=== PATIENT | female | born 1950 | race Caucasian/White ===

== ENCOUNTER 2016-09-28 15:46 | Emergency (ER) | payer BC, MEDICARE ==
[2016-09-28 18:31] VITALS: BP 156/80
[2016-09-28] MEDS ORDERED: Acetaminophen TAB* 325 MG PO ONE (18:56)
[2016-09-28] MEDS ORDERED: metroNIDAZOLE IV 500 MG/100ML* 500 MG/100 ML BAG IVPB ONE (19:13)
[2016-09-28] MEDS ORDERED: Ciprofloxacin 400MG IVPREMIX(* 400 MG/200 ML BAG IVPB ONE (19:13)
[2016-09-28 19:25] LABS: Hematocrit 40 % (35-47); Hemoglobin 13.1 g/dl (12.0-16.0); Mean Corpuscular HGB Conc 33 g/dl (31-36); Mean Corpuscular Hemoglobin 28 pg (27-31); Mean Corpuscular Volume 83 fL (80-97); Mean Platelet Volume 9 um3 (7.4-10.4); Red Blood Count 4.75 10^6/ul (4.0-5.4); Red Cell Distribution Width 15 % (10.5-15)
[2016-09-28] MEDS: NS 0.9% 1000 ML* 2,000 ML IV ONE (19:36)
[2016-09-28 19:40] LABS: ALT 17 U/L (7-52); Alkaline Phosphatase 83 U/L (34-104); BUN/Creatinine Ratio 17.1 (8-20); Blood Urea Nitrogen 13 mg/dL (6-24); C Reactive Protein 124.45 mg/L (< 5.00); CO2 Carbon Dioxide 23 mmol/L (22-32); Calcium 9.1 mg/dL (8.6-10.3); Chloride 101 mmol/L (101-111); Creatine Kinase 89 U/L (10-223); EGFR African American 98.2 (>60); EGFR Non-African American 76.4 (>60); Globulin 3.3 g/dL (2-4); Glucose 116 mg/dL (70-100); Sodium 136 mmol/L (133-145); Total Protein 7.3 g/dL (6.4-8.9)
[2016-09-28 19:41] LABS: Troponin I 0.01 ng/mL (<0.04)
[2016-09-28] MEDS ORDERED: NS 0.9% 1000 ML* 1,000 ML IV ONE (19:50)
--- NOTE | 2016-09-28 19:53 | RAD ---
HISTORY: Febrile illness COMPARISONS: October 31, 2004 VIEWS: 2: Frontal dual-energy and lateral views of the chest. FINDINGS: CARDIOMEDIASTINAL SILHOUETTE: The cardiomediastinal silhouette is normal. VICKIE: The vickie are normal. PLEURA: The costophrenic angles are sharp. No pleural abnormalities are noted. LUNG PARENCHYMA: The lungs are clear. ABDOMEN: The upper abdomen is clear. There is no subphrenic gas. BONES AND SOFT TISSUES: Degenerative changes are noted along the spine. OTHER: None. IMPRESSION: NO ACTIVE CARDIOPULMONARY DISEASE.
[2016-09-28] MEDS ORDERED: Vancomycin(*) 1,000 MG VIAL IVPB SCH (20:00)
[2016-09-28 20:23] LABS: Anion Gap 12 mmol/L (2-11)
[2016-09-28] MEDS ORDERED: Vancomycin 1500 MG IV - x ONCE IVPB ONE ×2 (22:00)
[2016-09-28 22:20] LABS: Erythrocyte Sed Rate 50 mm/Hr (0-40)
--- NOTE | 2016-09-28 22:38 | ED ---
HPI Febrile Illness - HPI Summary HPI Summary: Patient is a diabetic who presents to ED with CC of sore throat, generalized weakness and body aches, sweats, chills and fever x 2 days. Denies sick contacts or travel. 1x episode of vomiting bile like substance early this morning. Denies C/D, abdominal pain or neck pain. Endorses BILLINGS and fatigue, but denies visual disturbances, ear pain or eye pain. She is allergic to multiple medications and is concerned she cannot have abx for source of illness. On arrival, she is febrile at 100.5, after 2 hours she is 102.3. Son is with her. She states she is not confused or has AMS. She has not taken anything for relief. Last food intake yesterday. She feels dehydrated. - History of Current Complaint Chief Complaint: EDThroatPain Time Seen by Provider: 09/28/16 18:50 Hx Obtained From: Patient Onset/Duration: Started Hours Ago Timing: Constant Temperature: 102.3 F Initial Severity: Mild Current Severity: Moderate Pain Intensity: 8 Pain Scale Used: 0-10 Numeric Aggravating Factors: Nothing Alleviating Factors: Nothing Associated Signs and Symptoms: Chills, Diaphoresis, Dizziness, Headache, Nausea , Night Sweats, Sore Throat, Vomiting, Weakness - Risk Factors Pseudomonas Risk Factors: Negative Serious Bacterial Infection Risk Factors: Negative - Allergy/Home Medications Allergies/Adverse Reactions: Allergies Allergy/AdvReac Type Severity Reaction Status Date / Time Aztreonam Allergy Unknown Verified 06/19/13 11:35 Reaction Details Carbapenems Allergy Unknown Verified 06/19/13 11:35 Reaction Details Cephalosporins Allergy Rash Verified 06/19/13 11:35 Latex Allergy Rash Verified 06/19/13 11:35 Penicillins [PCN] Allergy Rash Verified 06/19/13 11:35 antibiotics Allergy Rash Uncoded 06/19/13 11:35 ENVIRONMENTAL Allergy VARIED Uncoded 06/19/13 11:35 PMH/Surg Hx/FS Hx/Imm Hx Previously Healthy: Yes Cardiovascular History: Reports: Hx Hypertension - ON MEDS Denies: Other Cardiovascular Problems/Disorders Respiratory History: Reports: Hx Asthma - WILL BRING INHALER GI History: Reports: Hx Irritable Bowel Denies: Other GI Disorders Musculoskeletal History: Reports: Hx Arthritis - THUMB, BOTH KNEES Denies: Other Musculoskeletal History Sensory History: Reports: Hx Contacts or Glasses - GLASSES Opthamlomology History: Reports: Hx Contacts or Glasses - GLASSES Neurological History: Denies: Other Neuro Impairments/Disorders Psychiatric History: Reports: Hx Anxiety - ON MEDS - Surgical History Surgery Procedure, Year, and Place: RIGHT KNEE, 2004, [facility] [place]. GALLBLADDER, 1994, [facility] [place]. TONSILECTOMY A CHILD, [facility] [place] Hx Anesthesia Reactions: No - Immunization History Hx Pertussis Vaccination: No Immunizations Up to Date: Unable to Obtain/Confirm Infectious Disease History: No Infectious Disease History: Denies: Traveled Outside the [place] in Last 30 Days - Family History Known Family History: Positive: Unknown - Social History Occupation: Employed Full-time Lives: With Family Alcohol Use: None Hx Substance Use: No Substance Use Type: Reports: None Hx Tobacco Use: No Do You Chew or Dip Tobacco: No Have You Chewed or Dipped Tobacco in the LAST YEAR: No Have You Smoked in the Last Year: No Review of Systems Positive: Fever, Chills, Fatigue, Skin Diaphoresis Eyes: Negative Positive: Sore Throat Cardiovascular: Negative Respiratory: Negative Positive: Vomiting, Nausea Positive: no symptoms reported, see HPI Musculoskeletal: Negative Positive: Headache, Weakness Psychological: Normal All Other Systems Reviewed And Are Negative: Yes Physical Exam Triage Information Reviewed: Yes Vital Signs On Initial Exam: Initial Vitals Temp Pulse Resp BP Pulse Ox 100.7 F 98 20 160/85 96 09/28/16 16:09 09/28/16 16:09 09/28/16 16:09 09/28/16 16:09 09/28/16 16:09 Completion Of Physical Exam Limited Due To: Dementia Appearance: Positive: Ill-Appearing Skin: Positive: Warm, Skin Color Reflects Adequate Perfusion, Dry Head/Face: Positive: Normal Head/Face Inspection Eyes: Positive: EOMI, DANIEL, Conjunctiva Clear ENT: Positive: Pharyngeal erythema, Tonsillar swelling, Tonsillar exudate Neck: Positive: Tenderness @ - anterior cervical nodes Respiratory/Lung Sounds: Positive: Clear to Auscultation, Breath Sounds Present Cardiovascular: Positive: Normal, RRR, Pulses are Symmetrical in both Upper and Lower Extremities Abdomen Description: Positive: Soft Bowel Sounds: Positive: Present Musculoskeletal: Positive: Normal, Strength/ROM Intact Neurological: Positive: Speech Normal Psychiatric: Positive: Normal Diagnostics - Vital Signs Vital Signs Temp Pulse Resp BP Pulse Ox 09/28/16 19:32 102.9 F 09/28/16 18:30 101.9 F 94 20 156/80 96 09/28/16 16:11 100.7 F 103 20 160/85 95 09/28/16 16:09 100.7 F 98 20 160/85 96 - Laboratory Lab Results: Lab Results 09/28/16 09/28/16 09/28/16 Range/Units 19:15 19:15 19:15 WBC 14.0 H (3.5-10.8) 10^3/ul RBC 4.75 (4.0-5.4) 10^6/ul Hgb 13.1 (12.0-16.0) g/dl Hct 40 (35-47) % MCV 83 (80-97) fL MCH 28 (27-31) pg MCHC 33 (31-36) g/dl RDW 15 (10.5-15) % Plt Count 188 (150-450) 10^3/ul MPV 9 (7.4-10.4) um3 Neut % (Auto) 88.7 H (38-83) % Lymph % (Auto) 6.8 L (25-47) % [place] % (Auto) 3.7 (1-9) % Eos % (Auto) 0 (0-6) % Baso % (Auto) 0.8 (0-2) % Absolute Neuts (auto) 12.4 H (1.5-7.7) 10^3/ul Absolute Lymphs (auto) 0.9 L (1.0-4.8) 10^3/ul Absolute Monos (auto) 0.5 (0-0.8) 10^3/ul Absolute Eos (auto) 0 (0-0.6) 10^3/ul Absolute Basos (auto) 0.1 (0-0.2) 10^3/ul Absolute Nucleated RBC 0 10^3/ul Nucleated RBC % 0 ESR 50 H (0-40) mm/Hr Sodium 136 (133-145) mmol/L Potassium TNP Chloride 101 (101-111) mmol/L Carbon Dioxide 23 (22-32) mmol/L Anion Gap 12 H (2-11) mmol/L BUN 13 (6-24) mg/dL Creatinine 0.76 (0.51-0.95) mg/dL Est GFR ( Amer) 98.2 (>60) Est GFR (Non-Af Amer) 76.4 (>60) BUN/Creatinine Ratio 17.1 (8-20) Glucose 116 H (70-100) mg/dL Lactic Acid 0.9 (0.5-2.0) mmol/L Calcium 9.1 (8.6-10.3) mg/dL Total Bilirubin 1.30 H (0.2-1.0) mg/dL AST TNP ALT 17 (7-52) U/L Alkaline Phosphatase 83 (34-104) U/L Total Creatine Kinase 89 (10-223) U/L Troponin I 0.01 (<0.04) ng/mL C-Reactive Protein 124.45 H (< 5.00) mg/L Total Protein 7.3 (6.4-8.9) g/dL Albumin 4.0 (3.2-5.2) g/dL Globulin 3.3 (2-4) g/dL Albumin/Globulin Ratio 1.2 (1-3) Group A Strep Rapid (Negative) 09/28/16 Range/Units 19:56 WBC (3.5-10.8) 10^3/ul RBC (4.0-5.4) 10^6/ul Hgb (12.0-16.0) g/dl Hct (35-47) % MCV (80-97) fL MCH (27-31) pg MCHC (31-36) g/dl RDW (10.5-15) % Plt Count (150-450) 10^3/ul MPV (7.4-10.4) um3 Neut % (Auto) (38-83) % Lymph % (Auto) (25-47) % [place] % (Auto) (1-9) % Eos % (Auto) (0-6) % Baso % (Auto) (0-2) % Absolute Neuts (auto) (1.5-7.7) 10^3/ul Absolute Lymphs (auto) (1.0-4.8) 10^3/ul Absolute Monos (auto) (0-0.8) 10^3/ul Absolute Eos (auto) (0-0.6) 10^3/ul Absolute Basos (auto) (0-0.2) 10^3/ul Absolute Nucleated RBC 10^3/ul Nucleated RBC % ESR (0-40) mm/Hr Sodium (133-145) mmol/L Potassium Chloride (101-111) mmol/L Carbon Dioxide (22-32) mmol/L Anion Gap (2-11) mmol/L BUN (6-24) mg/dL Creatinine (0.51-0.95) mg/dL Est GFR ( Amer) (>60) Est GFR (Non-Af Amer) (>60) BUN/Creatinine Ratio (8-20) Glucose (70-100) mg/dL Lactic Acid (0.5-2.0) mmol/L Calcium (8.6-10.3) mg/dL Total Bilirubin (0.2-1.0) mg/dL AST ALT (7-52) U/L Alkaline Phosphatase (34-104) U/L Total Creatine Kinase (10-223) U/L Troponin I (<0.04) ng/mL C-Reactive Protein (< 5.00) mg/L Total Protein (6.4-8.9) g/dL Albumin (3.2-5.2) g/dL Globulin (2-4) g/dL Albumin/Globulin Ratio (1-3) Group A Strep Rapid Positive H (Negative) Result Diagrams: 09/28/16 19:15 09/28/16 19:15 Lab Statement: Any lab studies that have been ordered have been reviewed, and results considered in the medical decision making process. Course/Dx - Course Course Of Treatment: Sepsis protocol d/t tachypnic at 22, HR 103, Temp at 102.3. Blood cultures obtained. 975 tylenol given. 2L fluids given, vanco and cipro + flagyl d/t patients allergies ordered. Cipro and flagyl given. Patient feeling improved. Strep positive. Cancelled vanco. WBC 14, otherwise labs WNL. Patient made aware of results. Patient is discharged with return precautions and instructions. Patient is OK with discharge and will return if symptoms become worse. - Febrile Illness Differential Diagnoses: Bacteremia, Fever of Unknown Origin, Pneumonia, Sepsis - Diagnoses Provider Diagnoses: Strep throat Discharge - Discharge Plan Condition: Stable Disposition: HOME Prescriptions: Azithromycin [Azithromycin 500 MG TAB] 500 mg PO DAILY #5 tab Ciprofloxacin TAB* [Cipro 500 MG TAB*] 500 mg PO BID #14 tab Patient Education Materials: Strep Throat (ED) Referrals: Mady Valdez MD [Primary Care Provider] - Additional Instructions: Dx: Strep Throat You will need antibiotic medicine to treat your strep throat. Please take the antibiotic as directed. You should feel better within 2 to 3 days after you start antibiotics. You may return to work or school 24 hours after you start antibiotics. If you have any questions about your medications, please do no hesitate to call or talk with your pharmacist. How can I manage my symptoms? Use lozenges, ice, soft foods, or popsicles to soothe your throat. Drink juice, milk shakes, or soup if your throat is too sore to eat solid food. Drinking liquids can also help prevent dehydration. Gargle with salt water. Mix teaspoon salt in a 1 cup of warm water and gargle. This may help reduce swelling in your throat. Do not smoke. Nicotine and other chemicals in cigarettes and cigars can cause lung damage and make your symptoms worse. Ask your healthcare provider for information if you currently smoke and need help to quit. E-cigarettes or smokeless tobacco still contain nicotine. Talk to your healthcare provider before you use these products. How do I prevent the spread of strep throat? Wash your hands often. Use soap and water. Wash your hands after you use the bathroom, change a child's diapers, or sneeze. Wash your hands before you prepare or eat food. Do not share food or drinks. Replace your toothbrush after you have taken antibiotics for 24 hours. D/t allergies, will prescribe azithromycin. Take once daily for 5 days
== END 2016-09-28 22:19 | disposition home or self-care (01) ==
LOC: ED 15:46
DX: J02.0 Streptococcal pharyngitis (principal); R42 Dizziness and giddiness; R51 Headache; J02.9 Acute pharyngitis, unspecified; R11.2 Nausea with vomiting, unspecified; R53.1 Weakness
CPT/HCPCS: 36415; 71010; 80053; 82550; 83605; 84484; 85025; 85652; 86140; 87040; 87651; 99282; A9270-GY; J0744; J3370

== ENCOUNTER 2017-11-19 08:48 | Emergency (ER) | payer MEDICARE, BC ==
[2017-11-19 09:34] LABS: ABS Basophils 0.1 10^3/ul (0-0.2); ABS Eosinophils 0.1 10^3/ul (0-0.6); ABS Lymphocytes 1.3 10^3/ul (1.0-4.8); ABS Monocytes 0.4 10^3/ul (0-0.8); ABS Nucleated RBC 0 10^3/ul; Eosinophil % 1.4 % (0-6); Hematocrit 40 % (35-47); Hemoglobin 13.7 g/dl (12.0-16.0); Lymphocyte % 16.8 % (25-47); Mean Corpuscular HGB Conc 34 g/dl (31-36); Mean Corpuscular Hemoglobin 28 pg (27-31); Mean Corpuscular Volume 84 fL (80-97); Nucleated Red Blood Cells % 0.1; Platelet Count 187 10^3/ul (150-450); Red Blood Count 4.81 10^6/ul (4.00-5.40); Red Cell Distribution Width 15 % (10.5-15); White Blood Count 7.9 10^3/ul (3.5-10.8)
[2017-11-19 09:57] LABS: EGFR Non-African American 88.1 (>60)
--- NOTE | 2017-11-19 10:04 | RAD ---
indication: Left eye swelling after a syncopal episode COMPARISON: None A CT scan of the brain and and maxillofacial bones was performed without intravenous contrast enhancement. Contiguous axial sections were obtained from the lower cervical spine through the cranial vertex. BRAIN: The ventricles, cisterns and sulci are within normal limits. No significant focal abnormality or mass effect is seen. The milton-white differentiation is adequately maintained. There is no evidence for intracranial hemorrhage. No significant bony abnormality is present. The mastoid air cells are appropriately aerated. The visualized paranasal sinuses are clear. FACIAL BONES: In the soft tissue overlying the left maxilla and zygomatic arch is a hyperattenuating subcutaneous collection measuring 3.2 x 1.7 cm in the axial plane and 1.9 cm and greatest cephalocaudal dimension most consistent with a subcutaneous hematoma. There is infiltration of the adjacent subcutaneous fat as well. Bones: There is no displaced fracture or dislocation. The orbital rim is intact. The zygomatic arch is intact. The pterygoid plates are intact Orbits: The globes are round. The optic nerves are symmetric. The extraocular musculature is normal. There is no post septal or intraconal inflammatory change. There is no retrobulbar hematoma. Paranasal Sinuses: The paranasal sinuses are clear. IMPRESSION: 1. No calvarial fracture or acute intracranial hemorrhage. 2. Subcutaneous hematoma overlying the left maxilla without underlying facial bone fracture.
--- NOTE | 2017-11-19 10:15 | RAD ---
Indication: Syncope. 2 views of the chest including dual energy PA views demonstrate no mediastinal shift. Heart is of normal size and configuration. Lung mills appear clear. No changes noted since September 28, 2016. IMPRESSION: No active cardiopulmonary disease is noted.
--- NOTE | 2017-11-19 10:36 | ED ---
Syncope/Near Syncope - HPI Summary HPI Summary: Patient is a 67-year-old with history of diabetes and hypertension presenting to the ED after syncopal episode in the shower this morning approximately 1 hour [employer]. She states she awoke next to the toilet with a large hematoma to the left side of the maxillary cheek. She denies any headache, visual changes or other pain. This has never happened to her before. She takes Jardiance and hydrochlorothiazide. She states she did not feel weak or near syncope just prior to her syncopal episode. She denies any recent illness, fever, sweats, chills. She states she drank a small amount of water, but did not eat anything this morning. LOC noted to be less than 10 seconds. Unwitnessed fall. - History Of Current Complaint Chief Complaint: EDSyncope Time Seen by Provider: 11/19/17 08:56 Hx Obtained From: Patient Onset/Duration: Sudden Onset Timing: Seconds Associated Head Trauma: No Aggravating Factor(s): Nothing Alleviating Factor(s): Nothing Associated Signs And Symptoms: Negative Frequency: Episodes x___ - 1, Episodes Lasting ____ (in Mins/Days/Weeks/Years) - 10 seconds - Risk Factors Cardiac Risk Factors: Hypertension, Diabetes Dysrhythmia Risk Factors: Negative Risk Factor(s): Negative - Allergies/Home Medications Allergies/Adverse Reactions: Allergies Allergy/AdvReac Type Severity Reaction Status Date / Time aztreonam Allergy Unknown Verified 11/19/17 09:25 Reaction Details Carbapenems Allergy Unknown Verified 11/19/17 09:25 Reaction Details Cephalosporins Allergy Rash Verified 11/19/17 09:25 Latex, Natural Rubber Allergy Rash Verified 11/19/17 09:25 Penicillins Allergy Rash Verified 11/19/17 09:25 antibiotics Allergy Rash Uncoded 11/19/17 09:25 ENVIRONMENTAL Allergy VARIED Uncoded 11/19/17 09:25 Home Medications: Home Medications Jardiance 11/19/17 [History] PMH/Surg Hx/FS Hx/Imm Hx Previously Healthy: Yes Cardiovascular History: Reports: Hx Hypertension - ON MEDS Denies: Other Cardiovascular Problems/Disorders Respiratory History: Reports: Hx Asthma - WILL BRING INHALER GI History: Reports: Hx Irritable Bowel Denies: Other GI Disorders Musculoskeletal History: Reports: Hx Arthritis - THUMB, BOTH KNEES Denies: Other Musculoskeletal History Sensory History: Reports: Hx Contacts or Glasses - GLASSES Opthamlomology History: Reports: Hx Contacts or Glasses - GLASSES Neurological History: Denies: Other Neuro Impairments/Disorders Psychiatric History: Reports: Hx Anxiety - ON MEDS - Surgical History Surgery Procedure, Year, and Place: RIGHT KNEE, 2004, [facility] [place]. GALLBLADDER, 1994, [facility] [place]. TONSILECTOMY A CHILD, [facility] [place] Hx Anesthesia Reactions: No - Immunization History Hx Pertussis Vaccination: No Immunizations Up to Date: Yes Infectious Disease History: No Infectious Disease History: Denies: Traveled Outside the [place] in Last 30 Days - Family History Known Family History: Positive: Unknown - Social History Occupation: Employed Part-time Lives: With Family Alcohol Use: Rare Hx Substance Use: No Substance Use Type: Reports: None Hx Tobacco Use: No Smoking Status (MU): Never Smoked Tobacco Have You Smoked in the Last Year: No Review of Systems Negative: Fever, Chills, Fatigue, Skin Diaphoresis Negative: Photophobia, Blurred Vision, Diplopia, Drainage Negative: Palpitations, Chest Pain Negative: Shortness Of Breath, Cough Negative: Abdominal Pain, Vomiting, Diarrhea, Nausea Negative: Rash, Bruising Positive: Syncope Psychological: Normal All Other Systems Reviewed And Are Negative: Yes Physical Exam Triage Information Reviewed: Yes Vital Signs On Initial Exam: Initial Vitals Temp Pulse Resp BP Pulse Ox 98.3 F 90 16 155/83 98 11/19/17 08:51 11/19/17 08:51 11/19/17 08:51 11/19/17 08:51 11/19/17 08:51 Vital Signs Reviewed: Yes Appearance: Positive: Well-Appearing, Well-Nourished, Signs of Trauma - large hematoma to the L maxillary sinus Skin: Positive: Warm, Skin Color Reflects Adequate Perfusion Head/Face: Positive: Normal Head/Face Inspection Eyes: Positive: EOMI, DANIEL, Conjunctiva Clear Neck: Positive: Supple, No Lymphadenopathy Respiratory/Lung Sounds: Positive: Clear to Auscultation, Breath Sounds Present Cardiovascular: Positive: RRR, Pulses are Symmetrical in both Upper and Lower Extremities Musculoskeletal: Positive: Normal, Strength/ROM Intact Neurological: Positive: Alert, Oriented to Person Place, Time, Speech Normal Psychiatric: Positive: Affect/Mood Appropriate Diagnostics - Vital Signs Vital Signs Temp Pulse Resp BP Pulse Ox 11/19/17 10:14 80 17 150/79 94 11/19/17 10:00 80 15 94 11/19/17 09:44 84 13 141/74 94 11/19/17 09:10 86 22 151/99 95 11/19/17 09:08 85 19 95 11/19/17 08:51 98.3 F 90 16 155/83 98 - Laboratory Lab Results: Lab Results 11/19/17 11/19/17 11/19/17 Range/Units 09:22 09:22 09:22 WBC 7.9 (3.5-10.8) 10^3/ul RBC 4.81 (4.00-5.40) 10^6/ul Hgb 13.7 (12.0-16.0) g/dl Hct 40 (35-47) % MCV 84 (80-97) fL MCH 28 (27-31) pg MCHC 34 (31-36) g/dl RDW 15 (10.5-15) % Plt Count 187 (150-450) 10^3/ul MPV 9.0 (7.4-10.4) um3 Neut % (Auto) 75.7 (38-83) % Lymph % (Auto) 16.8 L (25-47) % [place] % (Auto) 5.4 (0-7) % Eos % (Auto) 1.4 (0-6) % Baso % (Auto) 0.7 (0-2) % Absolute Neuts (auto) 6.0 (1.5-7.7) 10^3/ul Absolute Lymphs (auto) 1.3 (1.0-4.8) 10^3/ul Absolute Monos (auto) 0.4 (0-0.8) 10^3/ul Absolute Eos (auto) 0.1 (0-0.6) 10^3/ul Absolute Basos (auto) 0.1 (0-0.2) 10^3/ul Absolute Nucleated RBC 0 10^3/ul Nucleated RBC % 0.1 Sodium 138 (135-145) mmol/L Potassium 3.4 L (3.5-5.0) mmol/L Chloride 103 (101-111) mmol/L Carbon Dioxide 26 (22-32) mmol/L Anion Gap 9 (2-11) mmol/L BUN 17 (6-24) mg/dL Creatinine 0.67 (0.51-0.95) mg/dL Est GFR ( Amer) 106.6 (>60) Est GFR (Non-Af Amer) 88.1 (>60) BUN/Creatinine Ratio 25.4 H (8-20) Glucose 180 H (70-100) mg/dL Lactic Acid 1.0 (0.5-2.0) mmol/L Calcium 9.5 (8.6-10.3) mg/dL Magnesium 2.1 (1.9-2.7) mg/dL Total Bilirubin 1.00 (0.2-1.0) mg/dL AST 14 (13-39) U/L ALT 19 (7-52) U/L Alkaline Phosphatase 86 (34-104) U/L Troponin I 0.00 (<0.04) ng/mL Total Protein 7.1 (6.4-8.9) g/dL Albumin 4.0 (3.2-5.2) g/dL Globulin 3.1 (2-4) g/dL Albumin/Globulin Ratio 1.3 (1-3) TSH Pending Result Diagrams: 11/19/17 09:22 11/19/17 09:22 Lab Statement: Any lab studies that have been ordered have been reviewed, and results considered in the medical decision making process. Course/Dx Course Of Treatment: During the course of treatment, the patient is evaluated for a syncopal episode in the shower. Troponin obtained which is 0.00. Chest x -ray, and maxillofacial CT and brain CT obtained which is all WNL. Although the labs are WNL. Patient remains asymptomatic while in the ED. Discussed with the patient possible etiologies of syncopal episode. Likely secondary to vasovagal reaction from some dilatation due to the hot shower. Does not need a further workup for her syncopal episode at this time, however she is encouraged to return for any worsening symptoms. She understands this and voices no concerns about her discharge. - Diagnoses Differential Diagnosis/HQI/PQRI: Positive: Hypoglycemia, Hypovolemia, Vasovagal Episode Provider Diagnoses: Vasovagal attack Discharge - Sign-Out/Discharge Documenting (check all that apply): Patient Departure - Discharge Plan Condition: Stable Disposition: HOME Patient Education Materials: Syncope (ED) Referrals: Mady Valdez MD [Primary Care Provider] - Additional Instructions: Please follow up with your PCP - Billing Disposition and Condition Condition: STABLE Disposition: Home
[2017-11-19 10:38] VITALS: BP 130/66
== END 2017-11-19 10:38 | disposition home or self-care (01) ==
LOC: ED 08:48
DX: R55 Syncope and collapse (principal); S00.83XA Contusion of other part of head, initial encounter; W19.XXXA Unspecified fall, initial encounter; Y93.E1 Activity, personal bathing and showering; Y92.002 Bathroom of unspecified non-institutional (private) residence as the place of occurrence of the external cause; E11.9 Type 2 diabetes mellitus without complications; I10 Essential (primary) hypertension; F41.9 Anxiety disorder, unspecified; Z79.899 Other long term (current) drug therapy; Z79.84 Long term (current) use of oral hypoglycemic drugs; Z88.0 Allergy status to penicillin; Z88.8 Allergy status to other drugs, medicaments and biological substances
CPT/HCPCS: 36415; 70450; 70486; 71046; 80053; 83605; 83735; 84443; 84484; 85025; 93005; 99282

== ENCOUNTER 2018-11-26 13:23 | Emergency (ER) | payer MEDICARE, BC ==
--- NOTE | 2018-11-26 13:35 | UC ---
Lower Extremity/Ankle HPI - HPI Summary HPI Summary: 68 yo female presents with right foot toe injury that occurred about 30min [employer]. She tells me that she was at work and was moving a desk chair when she dropped the wheel of it on her right 4th toe. Since that time has had pain, bruising, and swelling. Able to bear weight, but has significant pain. - History of Current Complaint Stated Complaint: RIGHT FOOT TOE INJURY Time Seen by Provider: 11/26/18 13:34 Hx Obtained From: Patient Onset/Duration: Sudden Onset Severity Initially: Moderate Severity Currently: Moderate Pain Intensity: 7 Pain Scale Used: 0-10 Numeric Able to Bear Weight: Yes - Allergies/Home Medications Allergies/Adverse Reactions: Allergies Allergy/AdvReac Type Severity Reaction Status Date / Time apricot Allergy Airway Verified 11/26/18 13:36 Obstruction aztreonam Allergy Unknown Verified 11/26/18 13:36 Reaction Details Carbapenems Allergy Unknown Verified 11/26/18 13:36 Reaction Details Cephalosporins Allergy Rash Verified 11/26/18 13:36 Latex, Natural Rubber Allergy Rash Verified 11/26/18 13:36 Penicillins Allergy Rash Verified 11/26/18 13:36 plum Allergy Airway Verified 11/26/18 13:36 Obstruction antibiotics Allergy Rash Uncoded 11/26/18 13:36 ENVIRONMENTAL Allergy VARIED Uncoded 11/26/18 13:36 purple fruit Allergy Airway Uncoded 11/26/18 13:36 Obstruction Home Medications: Home Medications Empagliflozin/Linagliptin [Glyxambi 25 mg-5 mg Tablet] 1 tab PO DAILY 11/26/18 [ History Confirmed 11/26/18] Ibuprofen [Advil] 600 mg PO ONCE PRN 11/26/18 [History Confirmed 11/26/18] diphenhydrAMINE HCl [Benadryl Allergy] 1 tab PO ONCE PRN 11/26/18 [History Confirmed 11/26/18] PMH/Surg Hx/FS Hx/Imm Hx Endocrine History: Diabetes Cardiovascular History: Hypertension Respiratory History: Asthma Psychological History: Anxiety, Depression - Surgical History Surgical History: Yes Surgery Procedure, Year, and Place: RIGHT KNEE, 2004, [facility]. GALLBLADDER, 1994, [facility]. TONSILECTOMY A CHILD, [facility] - Family History Known Family History: Positive: Unknown - Social History Occupation: Employed Full-time Lives: With Family Alcohol Use: Rare Substance Use Type: None Smoking Status (MU): Never Smoked Tobacco Have You Smoked in the Last Year: No Review of Systems All Other Systems Reviewed And Are Negative: Yes Constitutional: Positive: Negative Skin: Positive: Negative Respiratory: Positive: Negative Cardiovascular: Positive: Negative Neurovascular: Positive: Negative Musculoskeletal: Positive: Other: - Right foot pain Neurological: Positive: Negative Psychological: Positive: Negative Physical Exam - Summary Physical Exam Summary: GENERAL: NAD. WDWN. No pain distress. SKIN: No rashes, sores, lesions, or open wounds. CHEST: No accessory muscle use. Breathing comfortably and in no distress. CV: Pulses intact PT and DP. Cap refill <2seconds MSK: RIGHT 4th toe with moderate edema and ecchymosis and tenderness. Able to move, but has significant pain. NEURO: Alert. Sensations intact and symmetric B/L LEs PSYCH: Age appropriate behavior. Triage Information Reviewed: Yes Vital Signs: Vital Signs: Temp Pulse Resp BP Pulse Ox 98.7 F 95 18 155/79 95 11/26/18 13:31 11/26/18 13:31 11/26/18 13:31 11/26/18 13:31 11/26/18 13:31 Vital Signs Reviewed: Yes Lower Extremity Course/Dx - Course Course Of Treatment: XR: IMPRESSION: OBLIQUE FRACTURE OF THE PROXIMAL PHALANX OF THE FOURTH DIGIT. OSTEOARTHRITIS. Discussed results with pt. Toe jalyn taped to adjacent toe and post-op shoe provided for comfort. Advised to RICE and f/u with Orthopedics within 1 week for a recheck - Differential Dx/Diagnosis Provider Diagnosis: Nondisplaced fracture of lesser toe Discharge - Sign-Out/Discharge Documenting (check all that apply): Patient Departure All imaging exams completed and their final reports reviewed: Yes - Discharge Plan Condition: Stable Disposition: HOME Patient Education Materials: Toe Fracture (ED) Referrals: Valeriy Castelan MD [Medical Doctor] - 1 Week Mady Valdez MD [Primary Care Provider] - Additional Instructions: If you develop a fever, shortness of breath, chest pain, new or worsening symptoms - please call your PCP or go to the ED immediately. Your blood pressure was high at todays visit. Please see your primary provider within 4 weeks for recheck and re-evaluation. 1) Rest, Ice, and elevate your toe/foot intermittently throughout the day to reduce pain and swelling 2) Jalyn tape your toe daily as shown in the clinic to keep the toe in good alignment 3) Please call Orthopedics at the number below to schedule an appointment for a recheck within 1 week - Billing Disposition and Condition Condition: STABLE Disposition: Home
[2018-11-26 13:36] VITALS: BP 155/79
== END 2018-11-26 14:58 | disposition home or self-care (01) ==
LOC: UCEAST 13:23
DX: S92.514A Nondisplaced fracture of proximal phalanx of right lesser toe(s), initial encounter for closed fracture (principal); W22.8XXA Striking against or struck by other objects, initial encounter; Y93.89 Activity, other specified; Y92.89 Other specified places as the place of occurrence of the external cause; Y99.0 Civilian activity done for income or pay; Z88.0 Allergy status to penicillin; Z91.040 Latex allergy status; Z88.1 Allergy status to other antibiotic agents
CPT/HCPCS: 99213; G0463

== ENCOUNTER 2020-12-21 08:33 | Observation (INO) ==
[~2020-12-21 08:33] MED LIST: Buffered Lidocaine 1% SYRIN 1 ml INTRADERM ONE; Famotidine IV 10 MG/ML 2 ml VIAL (20 mg) IV ONE; Lactated Ringers 1000 ml BAG 1,000 ML IV SCH
[2020-12-21] MEDS ORDERED: Famotidine IV 10 MG/ML 2 ml VIAL (20 mg) ONE (08:53)
[2020-12-21] MEDS ORDERED: Phenylephrine IV 10 MG/ML 1 ml VIAL ONE (09:59)
[2020-12-21] MEDS ORDERED: Lidocaine 2% PF 5 ML VIAL ONE (09:59)
[2020-12-21] MEDS ORDERED: fentaNYL 100 mcg/2 ml 50 MCG/ML VIAL ONE ×2 (09:59→10:40)
[2020-12-21] MEDS ORDERED: Midazolam 2 mg/2 ml VIAL 1 mg/ml 2 ml VIAL (2 mg) ONE ×2 (09:59→10:40)
[2020-12-21] MEDS ORDERED: Ondansetron 4 mg VIAL 2 MG/ML 2 ml VIAL ONE (10:00)
[2020-12-21] MEDS ORDERED: Dexamethasone IV 4 MG/ML VIAL 1 ml VIAL ONE ×2 (10:00→10:41)
[2020-12-21] MEDS ORDERED: ROPIVACAINE 5 MG/ML 30 ML BTL (0.5%) ONE ×2 (10:50→11:27)
[2020-12-21] MEDS ORDERED: Vancomycin 1000 MG in NS 0.9% 250 ML IVPB ONE (11:00)
[2020-12-21] MEDS ORDERED: diPHENhydraMINE 25 mg TAB PO PRN (12:38)
[2020-12-21] MEDS ORDERED: Morphine 2 MG/ML SYRINGE IV PRN (12:38)
[2020-12-21] MEDS ORDERED: diPHENhydraMINE IV 50 MG/ML 1 ml VIAL (BENADRYL) IV PRN ×2 (12:38→14:57)
[2020-12-21] MEDS ORDERED: Ondansetron ODT 4 mg TAB 4 MG TAB PO PRN (12:38)
[2020-12-21] MEDS ORDERED: Lactulose 30 ml UDC PO PRN (12:38)
[2020-12-21] MEDS ORDERED: Magnesium Hydroxide LIQ 30 ML UDC PO PRN (12:38)
[2020-12-21] MEDS ORDERED: Ondansetron 4 mg VIAL 2 MG/ML 2 ml VIAL IV PRN ×2 (12:38→14:57)
[2020-12-21] MEDS ORDERED: Clindamycin 600 MG/D5W BAG 600 MG/50 ML BAG IV SCH (13:00)
[2020-12-21] MEDS ORDERED: Phenylephrine 40 mcg/mL 10mL (400mcg) SYRINGE ONE (13:16)
[2020-12-21] MEDS ORDERED: Propofol 10 MG/ML 20 ML BTL ONE (14:02)
[2020-12-21] MEDS ORDERED: Naloxone 0.4 mg VIAL 0.4 mg/ml 1 ml VIAL IV PRN (14:57)
[2020-12-21] MEDS ORDERED: HYDROcodone/ACETAMIN 5/325 mg TAB PO PRN (14:57)
[2020-12-21] MEDS ORDERED: Metoclopramide 5 MG/ML VIAL (10 mg) IV PRN (14:57)
[2020-12-21] MEDS ORDERED: HYDROmorphone 1 MG/1 ML SYRINGE IV PRN (14:57)
[2020-12-21] MEDS ORDERED: Dextrose 50% Syringe 50 ml 25 GM/50 ML SYRINGE IV PUSH PRN (14:57)
[2020-12-21] MEDS ORDERED: fentaNYL 100 mcg/2 ml 50 MCG/ML VIAL IV PRN (14:57)
[2020-12-21] MEDS ORDERED: HYDROcodone/ACETAMIN 5/325 mg TAB ONE (15:00)
[2020-12-21] MEDS: Lactated Ringers 1000 ml BAG 1,000 ML IV SCH (15:50)
[2020-12-21] MEDS ORDERED: Insulin GLARGINE 100 un/ml 10 ml VIAL SUBCUT SCH ×2 (18:00→21:00)
[2020-12-21] MEDS ORDERED: Metformin ER 500 mg TAB (NF) PO SCH (18:00)
[2020-12-21] MEDS ORDERED: Albuterol HFA INHALER 8 gm MDI INH SCH (18:00)
[2020-12-21] MEDS ORDERED: Albuterol HFA INHALER 8 gm MDI INH PRN (18:00)
[2020-12-21] MEDS: Magnesium Hydroxide LIQ 30 ML UDC PO SCH (21:16)
[2020-12-21] MEDS: Vancomycin 1,000 MG in NS 0.9% 250 ml 250 ML IVPB SCH (23:07)
[2020-12-22] MEDS: Lactated Ringers 1000 ml BAG 1,000 ML IV SCH (04:08)
[2020-12-22] MEDS: Magnesium Hydroxide LIQ 30 ML UDC PO SCH (08:02)
[2020-12-22 08:44] LABS: Hematocrit 29 % (35-47); Hemoglobin 9.6 g/dL (12.0-16.0); Mean Platelet Volume 8.7 fL (7.4-10.4); Platelet Count 204 10^3/uL (150-450)
[2020-12-22] MEDS ORDERED: Vitamin THERAPEUTIC TAB PO SCH (09:00)
[2020-12-22] MEDS ORDERED: Aspirin EC 81 mg TAB.EC (enteric coated) PO SCH (09:00)
[2020-12-22 09:04] LABS: Calcium 8.9 mg/dL (8.6-10.3); EGFR African American 100.4 (>60)
[2020-12-22 11:22] VITALS: BP 102/57
[2020-12-22] MEDS: Vancomycin 1,000 MG in NS 0.9% 250 ml 250 ML IVPB SCH (11:29)
== END 2020-12-22 14:04 | disposition home or self-care (01) ==
LOC: SSU 08:33 → OR 08:33
PROVIDERS: ADMIT Orthopaedic Surgery Adult Reconstructive Orthopaedic Surgery; ATTEND Orthopaedic Surgery Adult Reconstructive Orthopaedic Surgery

== ENCOUNTER 2022-01-05 07:55 | Observation (INO) ==
[~2022-01-05 07:55] MED LIST changes: -Famotidine IV 10 MG/ML 2 ml VIAL (20 mg) IV ONE; +Naloxone 0.4 mg VIAL 0.4 mg/ml 1 ml VIAL IV PRN; +Ondansetron 4 mg VIAL 2 MG/ML 2 ml VIAL IV PRN
[2022-01-05] MEDS ORDERED: Clindamycin 900 MG/D5W BAG 0 MG/0 ML BAG IVPB ONE (08:19)
[2022-01-05] MEDS ORDERED: ROPIVACAINE 5 MG/ML 30 ML BTL (0.5%) ONE (09:37)
[2022-01-05] MEDS ORDERED: Lidocaine 2% PF 5 ML VIAL ONE ×2 (09:37→09:57)
[2022-01-05] MEDS ORDERED: Dexamethasone IV 4 MG/ML VIAL 1 ml VIAL ONE ×2 (09:37→12:33)
[2022-01-05] MEDS ORDERED: Midazolam 2 mg/2 ml VIAL 1 mg/ml 2 ml VIAL (2 mg) ONE (09:37)
[2022-01-05] MEDS ORDERED: Phenylephrine IV 10 MG/ML 1 ml VIAL ONE (09:57)
[2022-01-05] MEDS ORDERED: Ropivacaine 5 MG/ML 20 ML VIAL 0.5% (100 MG) ONE (10:36)
[2022-01-05] MEDS ORDERED: Vancomycin 1,000 MG VIAL ONE (11:09)
[2022-01-05] MEDS ORDERED: Propofol 10 MG/ML 20 ML BTL ONE ×4 (11:28→14:31)
[2022-01-05] MEDS ORDERED: fentaNYL 100 mcg/2 ml 50 MCG/ML VIAL ONE (11:47)
[2022-01-05] MEDS ORDERED: Vancomycin 1000 MG in NS 0.9% 250 ML IVPB ONE (12:30)
[2022-01-05] MEDS ORDERED: Ondansetron 4 mg VIAL 2 MG/ML 2 ml VIAL ONE (12:33)
[2022-01-05] MEDS ORDERED: Lactulose 30 ml UDC PO PRN (15:47)
[2022-01-05] MEDS ORDERED: Ondansetron ODT 4 mg TAB 4 MG TAB PO PRN (15:47)
[2022-01-05] MEDS ORDERED: Ondansetron 4 mg VIAL 2 MG/ML 2 ml VIAL IV PRN (15:47)
[2022-01-05] MEDS ORDERED: Magnesium Hydroxide LIQ 30 ML UDC PO PRN (15:47)
[2022-01-05] MEDS ORDERED: Morphine 2 MG/ML SYRINGE IV PRN (15:47)
[2022-01-05] MEDS ORDERED: Lactated Ringers 1000 ml BAG 1,000 ML IV SCH (16:00)
[2022-01-05] MEDS ORDERED: Vancomycin per Pharmacy 1 EA NOTE FOLLOW UP SCH (16:00)
[2022-01-05] MEDS ORDERED: HYDROmorphone 1 MG/1 ML SYRINGE ONE (16:16)
[2022-01-05] MEDS: HYDROmorphone 1 MG/1 ML SYRINGE IV PRN ×3 (16:19→17:05)
[2022-01-05] MEDS ORDERED: Albuterol HFA INHALER 8 gm MDI INH PRN (16:24)
[2022-01-05] MEDS ORDERED: Naphazoline/Pheniramine OPTH 5 ML BTL BOTH EYES PRN (16:24)
[2022-01-05] MEDS ORDERED: Dextrose 50% Syringe 50 ml 25 GM/50 ML SYRINGE IV PUSH PRN (16:27)
[2022-01-05] MEDS: Magnesium Hydroxide LIQ 30 ML UDC PO SCH (22:23)
[2022-01-05] MEDS: Vancomycin 1,500 MG in NS 0.9% 250 ml 250 ML IVPB SCH (22:32)
[2022-01-06 05:10] LABS: Hematocrit 30 % (35-47); Hemoglobin 9.9 g/dL (12.0-16.0); Platelet Count 189 10^3/uL (150-450)
[2022-01-06 05:48] LABS: Calcium 8.4 mg/dL (8.6-10.3); Potassium 3.4 mmol/L (3.5-5.0)
[2022-01-06] MEDS: Magnesium Hydroxide LIQ 30 ML UDC PO SCH (07:57)
[2022-01-06] MEDS ORDERED: Aspirin EC 81 mg TAB.EC (enteric coated) PO SCH (09:00)
[2022-01-06] MEDS ORDERED: Cholecalciferol (VIT D3) 1,000 unit TAB PO SCH (09:00)
[2022-01-06] MEDS ORDERED: Vitamin THERAPEUTIC TAB PO SCH (09:00)
[2022-01-06] MEDS: Vancomycin 1,500 MG in NS 0.9% 250 ml 250 ML IVPB SCH (10:02)
[2022-01-06 11:08] VITALS: BP 126/52
== END 2022-01-06 14:00 | disposition home or self-care (01) ==
LOC: OR 07:55 → SSU 07:55 → EDSTATUS 11:00
PROVIDERS: ADMIT Orthopaedic Surgery Adult Reconstructive Orthopaedic Surgery; ATTEND Orthopaedic Surgery Adult Reconstructive Orthopaedic Surgery

== ENCOUNTER 2023-07-03 11:02 | Inpatient (IN) ==
[2023-07-03 13:54] LABS: ABS Lymphocytes 1.1 10^3/uL (1.0-4.8); ABS Monocytes 0.8 10^3/uL (0.0-0.9); ABS Nucleated RBC 0.03 10^3/ul; Hematocrit 33.9 % (35-45); Hemoglobin 11.7 g/dL (11.5-14.3); Lymphocyte % 7.2 %; Mean Corpuscular Hemoglobin 28.1 pg (27-33); Mean Corpuscular Hgb Conc 34.4 g/dL (31-36); Mean Corpuscular Volume 81.8 fL (80-97); Mean Platelet Volume 9.1 fL (7.5-11.2); Nucleated Red Blood Cells % 0.2 %/100WBC (0.0-0.8); Platelet Count 238 10^3/uL (150-450); Red Blood Count 4.15 10^6/uL (3.63-4.92); Red Cell Distribution Width 15.5 % (12-17); White Blood Count 14.9 10^3/uL (3.8-11.8)
[2023-07-03 14:40] LABS: Albumin 3.5 g/dL (3.2-5.2); Albumin/Globulin Ratio 1.2 (1-3); Calcium 8.5 mg/dL (8.6-10.3); Creatinine, Serum 1.17 mg/dL (0.51-0.95); Globulin 2.9 g/dL (2-4); Magnesium 1.9 mg/dL (1.9-2.7); Potassium 2.9 mmol/L (3.5-5.0); Total Bilirubin 1.9 mg/dL (0.2-1.0); Total Protein 6.4 g/dL (6.4-8.9); eGFR CKD-EPI 49.6 (>60)
[2023-07-03 14:46] LABS: TSH Ultra Thyroid Stim Horm 1.12 mcIU/mL (0.34-5.60)
[2023-07-03 15:40] LABS: High Sensitivity Troponin 1 Hr 1609 pg/mL (<15)
[2023-07-03] MEDS: KCL 20 MEQ/100 ML IVPREMIX 20 MEQ/100 ML BAG IV SCH (15:44)
[2023-07-03 18:06] LABS: Urine Appearance Turbid; Urine Bacteria 2+ /HPF (Absent); Urine Bilirubin Negative (Negative); Urine Blood 3+ (Negative); Urine Glucose Trace (Negative); Urine Ketones 1+ (Negative); Urine Nitrite Negative (Negative); Urine Protein 3+ (>=300 mg/dL) (Negative); Urine Red Blood Cell 2+(6-10/hpf) /HPF (0-Trace); Urine Specific Gravity 1.026 (1.002-1.030); Urine Squamous Epithelial Cell Present /HPF (Absent); Urine Urobilinogen 1+ (Negative); Urine White Blood Cell 1+(6-10/hpf) /HPF (0-Trace)
[2023-07-03 18:07] LABS: Urine Color Amber
[2023-07-03 18:10] LABS: INR 1.17 (0.83-1.13)
[2023-07-03 18:26] LABS: High Sensitivity Troponin 3 Hr 1560 pg/mL (<15)
[2023-07-03] MEDS: Enoxaparin 40 MG/0.4 ML SYR SUBCUT SCH (18:48)
[2023-07-03] MEDS: Lactated Ringers 1000 ml BAG 1,000 ML IV SCH (18:51)
[2023-07-03] MEDS: Lactated Ringers 1000 ml BAG 1,000 ML IV ONE (19:20)
[2023-07-03 20:23] LABS: Calcium 7.7 mg/dL (8.6-10.3); Creatinine, Serum 1.49 mg/dL (0.51-0.95); Potassium 3.2 mmol/L (3.5-5.0); eGFR CKD-EPI 37.1 (>60)
[2023-07-04 07:38] LABS: ABS Basophils 0.1 10^3/uL (0.0-0.1); ABS Eosinophils 0.1 10^3/uL (0.0-0.5); ABS Lymphocytes 1.2 10^3/uL (1.0-4.8); ABS Monocytes 0.9 10^3/uL (0.0-0.9); ABS Neutrophils 10.4 10^3/uL (1.5-7.6); ABS Nucleated RBC 0.01 10^3/ul; Eosinophil % 0.6 %; Lymphocyte % 9.5 %; Mean Corpuscular Hemoglobin 28.3 pg (27-33); Mean Corpuscular Hgb Conc 34.6 g/dL (31-36); Mean Corpuscular Volume 81.8 fL (80-97); Mean Platelet Volume 8.9 fL (7.5-11.2); Nucleated Red Blood Cells % 0.1 %/100WBC (0.0-0.8); Platelet Count 209 10^3/uL (150-450); Red Blood Count 3.55 10^6/uL (3.63-4.92); Red Cell Distribution Width 15.1 % (12-17); White Blood Count 12.7 10^3/uL (3.8-11.8)
[2023-07-04 08:19] LABS: Calcium 8.1 mg/dL (8.6-10.3); Creatinine, Serum 2.32 mg/dL (0.51-0.95); Potassium 3.2 mmol/L (3.5-5.0); eGFR CKD-EPI 21.8 (>60)
[2023-07-04 08:38] LABS: Albumin 3.1 g/dL (3.2-5.2); Albumin/Globulin Ratio 1.3 (1-3); Globulin 2.3 g/dL (2-4); Total Bilirubin 1.1 mg/dL (0.2-1.0); Total Protein 5.4 g/dL (6.4-8.9)
[2023-07-04] MEDS: Lactated Ringers 1000 ml BAG 1,000 ML IV ONE (09:26)
[2023-07-04] MEDS: Aspirin EC 81 mg TAB.EC (enteric coated) PO SCH (09:28)
[2023-07-04] MEDS: Lactated Ringers 1000 ml BAG 1,000 ML IV SCH (10:34)
[2023-07-04] MEDS ORDERED: Dextrose 50% Syringe 50 ml 25 GM/50 ML SYRINGE IV PUSH PRN (10:49)
[2023-07-04] MEDS: Potassium Chlor 20 meq TAB.ER PO ONE ×2 (16:56→16:59)
[2023-07-05 07:57] LABS: ABS Basophils 0.1 10^3/uL (0.0-0.1); ABS Eosinophils 0.3 10^3/uL (0.0-0.5); ABS Lymphocytes 1.2 10^3/uL (1.0-4.8); ABS Monocytes 0.5 10^3/uL (0.0-0.9); ABS Neutrophils 5.8 10^3/uL (1.5-7.6); Eosinophil % 3.7 %; Hematocrit 25.9 % (35-45); Hemoglobin 9.1 g/dL (11.5-14.3); Lymphocyte % 15.6 %; Mean Corpuscular Hemoglobin 28.3 pg (27-33); Mean Corpuscular Volume 80.8 fL (80-97); Mean Platelet Volume 9.3 fL (7.5-11.2); Platelet Count 196 10^3/uL (150-450); Red Cell Distribution Width 15.3 % (12-17); White Blood Count 7.9 10^3/uL (3.8-11.8)
[2023-07-05 07:59] LABS: Calcium 8.2 mg/dL (8.6-10.3); Creatinine, Serum 2.06 mg/dL (0.51-0.95); Potassium 3.4 mmol/L (3.5-5.0); eGFR CKD-EPI 25.1 (>60)
[2023-07-05 08:14] LABS: Albumin 2.8 g/dL (3.2-5.2); Albumin/Globulin Ratio 1.3 (1-3); Globulin 2.2 g/dL (2-4); Total Bilirubin 0.7 mg/dL (0.2-1.0)
[2023-07-05] MEDS: Potassium Chlor 20 meq TAB.ER PO ONE (09:11)
[2023-07-05 18:43] LABS: Urine Appearance Turbid; Urine Bilirubin Negative (Negative); Urine Blood 2+ (Negative); Urine Color Light-Yellow; Urine Glucose Negative (Negative); Urine Ketones Negative (Negative); Urine Nitrite Negative (Negative); Urine Protein Trace (Negative); Urine Specific Gravity 1.008 (1.002-1.030); Urine Urobilinogen Negative (Negative)
[2023-07-05 18:45] LABS: Urine Bacteria 1+ /HPF (Absent); Urine Red Blood Cell Trace(0-2/hpf) /HPF (0-Trace); Urine Squamous Epithelial Cell Present /HPF (Absent); Urine White Blood Cell Trace(0-5/hpf) /HPF (0-Trace)
[2023-07-06 05:25] LABS: ABS Eosinophils 0.2 10^3/uL (0.0-0.5); ABS Lymphocytes 1.3 10^3/uL (1.0-4.8); ABS Monocytes 0.5 10^3/uL (0.0-0.9); ABS Neutrophils 3.8 10^3/uL (1.5-7.6); ABS Nucleated RBC 0.01 10^3/ul; Eosinophil % 4.2 %; Hematocrit 25.3 % (35-45); Hemoglobin 8.8 g/dL (11.5-14.3); Lymphocyte % 22.2 %; Mean Corpuscular Hemoglobin 28.4 pg (27-33); Mean Corpuscular Hgb Conc 34.8 g/dL (31-36); Mean Corpuscular Volume 81.7 fL (80-97); Mean Platelet Volume 9.1 fL (7.5-11.2); Nucleated Red Blood Cells % 0.2 %/100WBC (0.0-0.8); Platelet Count 199 10^3/uL (150-450); Red Cell Distribution Width 15.1 % (12-17); White Blood Count 5.8 10^3/uL (3.8-11.8)
[2023-07-06 05:47] LABS: Albumin 2.6 g/dL (3.2-5.2); Albumin/Globulin Ratio 1.2 (1-3); Creatinine, Serum 1.57 mg/dL (0.51-0.95); Globulin 2.1 g/dL (2-4); Magnesium 1.6 mg/dL (1.9-2.7); Potassium 3.6 mmol/L (3.5-5.0); Total Bilirubin 0.5 mg/dL (0.2-1.0); Total Protein 4.7 g/dL (6.4-8.9); eGFR CKD-EPI 34.8 (>60)
[2023-07-06] MEDS: Lactated Ringers 1000 ml BAG 1,000 ML IV SCH (10:13)
[2023-07-07 04:52] LABS: ABS Eosinophils 0.3 10^3/uL (0.0-0.5); ABS Lymphocytes 1.5 10^3/uL (1.0-4.8); ABS Monocytes 0.4 10^3/uL (0.0-0.9); ABS Neutrophils 3.3 10^3/uL (1.5-7.6); Hematocrit 25.8 % (35-45); Hemoglobin 8.8 g/dL (11.5-14.3); Lymphocyte % 27.2 %; Mean Corpuscular Hemoglobin 28.1 pg (27-33); Mean Corpuscular Volume 82.5 fL (80-97); Mean Platelet Volume 8.6 fL (7.5-11.2); Platelet Count 224 10^3/uL (150-450); Red Blood Count 3.13 10^6/uL (3.63-4.92); Red Cell Distribution Width 15.3 % (12-17); White Blood Count 5.5 10^3/uL (3.8-11.8)
[2023-07-07 05:37] LABS: Albumin 2.6 g/dL (3.2-5.2); Albumin/Globulin Ratio 1.3 (1-3); Creatinine, Serum 1.06 mg/dL (0.51-0.95); Potassium 3.6 mmol/L (3.5-5.0); Total Bilirubin 0.5 mg/dL (0.2-1.0); Total Protein 4.6 g/dL (6.4-8.9); eGFR CKD-EPI 55.8 (>60)
[2023-07-08 07:45] LABS: ABS Basophils 0.1 10^3/uL (0.0-0.1); ABS Eosinophils 0.3 10^3/uL (0.0-0.5); ABS Lymphocytes 1.7 10^3/uL (1.0-4.8); ABS Monocytes 0.5 10^3/uL (0.0-0.9); ABS Neutrophils 3.4 10^3/uL (1.5-7.6); Eosinophil % 4.4 %; Hematocrit 27.1 % (35-45); Hemoglobin 9.1 g/dL (11.5-14.3); Mean Corpuscular Hgb Conc 33.4 g/dL (31-36); Mean Corpuscular Volume 83.9 fL (80-97); Mean Platelet Volume 8.4 fL (7.5-11.2); Platelet Count 238 10^3/uL (150-450); Red Blood Count 3.23 10^6/uL (3.63-4.92); Red Cell Distribution Width 15.6 % (12-17); White Blood Count 5.8 10^3/uL (3.8-11.8)
[2023-07-08 08:46] LABS: Calcium 7.8 mg/dL (8.6-10.3); Creatinine, Serum 0.86 mg/dL (0.51-0.95); Potassium 3.6 mmol/L (3.5-5.0); eGFR CKD-EPI 71.7 (>60)
[2023-07-09 18:19] VITALS: BP 198/153
== END 2023-07-09 20:25 | disposition home or self-care (01) | DRG 871 ==
LOC: ED 11:02 → EDHOLD 11:02 → MED 18:57 → SUATTDRO 07-05 09:41
PROVIDERS: ADMIT Internal Medicine; ATTEND Internal Medicine